=== PATIENT | male | born 1995 | race American Indian/Alaskan Native ===

== ENCOUNTER 2018-05-16 14:33 | Emergency (ER) | payer MEDICAID ==
--- NOTE | 2018-05-16 15:02 | C.PDOC ---
History Of Present Illness 22 y/o male presents to ED complaining of left leg pain x2 days. States he has not run in 8 months and wanted to test his endurance. Patient ran from court to court and did not feel any pain until the next morning. Patient reports that the pain became much worse and cannot walk well. Denies any right leg pain, fever, weakness, or numbness. <Amanda Vázquez - Last Filed: 05/16/18 21:22> <Courtney Crain - Last Filed: 05/16/18 17:55> History Per: Patient History/Exam Limitations: no limitations Onset/Duration Of Symptoms: Days, Persistent Current Symptoms Are (Timing): Still Present Pain Scale Rating Of: 9 <Amanda Vázquez - Last Filed: 05/16/18 21:22> Time Seen by Provider: 05/16/18 14:43 Chief Complaint (Nursing): Lower Extremity Problem/Injury Past Medical History Vital Signs: Last Vital Signs Temp 98.1 F 05/16/18 14:34 Pulse 110 H 05/16/18 14:34 Resp 20 05/16/18 14:34 BP 129/76 05/16/18 14:34 Pulse Ox 99 05/16/18 15:13 <Courtney Crain - Last Filed: 05/16/18 17:55> Reviewed: Historical Data, Nursing Documentation, Vital Signs Vital Signs: Last Vital Signs Temp 98.1 F 05/16/18 14:34 Pulse 110 H 05/16/18 14:34 Resp 20 05/16/18 14:34 BP 129/76 05/16/18 14:34 Pulse Ox 99 05/16/18 14:34 - Medical History PMH: No Chronic Diseases Surgical History: No Surg Hx Family History: States: No Known Family Hx - Social History Hx Alcohol Use: Yes Hx Substance Use: No - Immunization History Hx Tetanus Toxoid Vaccination: No Hx Influenza Vaccination: Yes Hx Pneumococcal Vaccination: No <Amanda Vázquez - Last Filed: 05/16/18 21:22> Review Of Systems Except As Marked, All Systems Reviewed And Found Negative. Constitutional: Negative for: Fever, Chills ENT: Negative for: Ear Pain, Ear Discharge Cardiovascular: Negative for: Chest Pain, Palpitations, Light Headedness Respiratory: Negative for: Cough, Shortness of Breath, Pleuritic Pain, Wheezing Gastrointestinal: Negative for: Nausea, Vomiting Genitourinary: Negative for: Dysuria Musculoskeletal: Positive for: Leg Pain (Left) Skin: Negative for: Rash, Bruising Neurological: Negative for: Weakness, Numbness <Amanda Vázquez - Last Filed: 05/16/18 21:22> Physical Exam - Physical Exam Appears: Non-toxic, No Acute Distress Skin: Warm, Dry, No Rash Head: Atraumatic, Normacephalic Eye(s): bilateral: Normal Inspection Oral Mucosa: Moist Neck: Normal ROM, Supple Chest: Symmetrical, No Tenderness Cardiovascular: Rhythm Regular, No Friction Rub, No Murmur Respiratory: Normal Breath Sounds, No Rales, No Rhonchi, No Wheezing Gastrointestinal/Abdominal: Normal Exam, Soft, No Tenderness Extremity: Tenderness (moderate tenderness to the left calf, firm to touch, no erythema, no fluctuance), No Pedal Edema, Capillary Refill (than 2 seconds), No Deformity, Swelling (moderate swelling of L calf ) Pulses: Left Femoral: Normal, Right Femoral: Normal, Left Dorsalis Pedis: Normal, Right Dorsalis Pedis: Normal Neurological/Psych: Oriented x3, Normal Speech, Normal Motor, Normal Sensation Gait: Steady <Amanda Vázquez - Last Filed: 05/16/18 21:22> ED Course And Treatment - Laboratory Results Result Diagrams: 05/16/18 15:21 05/16/18 15:21 <Courtney Crain - Last Filed: 05/16/18 17:55> - Laboratory Results Result Diagrams: 05/16/18 15:21 05/16/18 15:21 O2 Sat by Pulse Oximetry: 99 (RA) Pulse Ox Interpretation: Normal <Amanda Vázquez - Last Filed: 05/16/18 21:22> Supervising Attending Note - Supervising Attending Note The Documented history was done by the: Physician Household Appliance Installer The documented physical exam was done by the: Physician Household Appliance Installer The documented procedures were done by the: Physician Household Appliance Installer - Attestation: I have personally seen and examined this patient.: Yes I have fully participated in the care of the patient.: Yes I have reviewed all pertinent clinical information, including history, physical exam and plan: Yes - Notes: Notes:: NEW ONSET L LOWER CALF PAIN. ONSET AFTER RUNNING, PS HAS NOT RUN "IN 8 MONTHS". NO TRAUMA. +SWELLING. DENIES CP, SOB. NO IMPROVE W NSAIDS. EXAM ABOVE. +PALP DP, WARM NO PALLOR; +ROM L ACHILLES LIMITED FULL ROM DUE TO PAIN. +TENSE BUT SOFT L CALF NO PALP CORD. SKIN WNL. NO DEFORM <Courtney Crain - Last Filed: 05/16/18 17:55> Progress - Re-Evaluation Re-evaluation Note: 05/16/18 17:52 SP EVAL PODIATRY, COMPARTMENT PRESSURES WNL. DC FU OFFICE/CLINIC. 05/16/18 17:55 PT ADVISED TO RETURN TOMORROW FOR VENOUS DUPLEX. UNABLE TO DOSE ANTICOAG DUE TO S/P LARGE BORE MULTIPLE NEEDLE PROBE FROM Oligomerix. NO CP, SOB NSR. OUTPT RX MRI GIVEN BY PODIATRY <Courtney Crain - Last Filed: 05/16/18 17:55> Medical Decision Making Medical Decision Making: Plan: --Labs --Epinephrine --Morphine --Zofran Case was discussed with Dr. Crain who has examined the patient at bedside and states to consult podiatry on possible compartment syndrome. Case was discusesd with Dr. Medina podiatry at 1515 who states to order CK and D dimer (as venous doppler is not available at this time) and will come in to evaluated the patient. Podiatry contacted at 1615 pending evaluation. Another call placed at 1645 pending podiatry consult. Compartment pressures were checked by Podiatry resident with results of 15-18. Also CK is WNLs. On re-exam, the patient reports improvement of symptoms. Patient is ambulatory with steady gait. <Amanda Vázquez - Last Filed: 05/16/18 21:22> Disposition Counseled Patient/Family Regarding: Studies Performed, Diagnosis, Need For Followup, Rx Given - Disposition Disposition Time: 17:51 <Courtney Crain - Last Filed: 05/16/18 17:55> <Amanda Vázquez - Last Filed: 05/16/18 21:22> - Disposition Referrals: Mariaa Womack DPM [Staff Provider] - [facility] [Outside] [facility] [Outside] Disposition: HOME/ ROUTINE Condition: IMPROVED Additional Instructions: RETURN 05/17 FOR ULTRASOUND OF YOUR LEG. AVOID EXCESSIVE MOVEMENT FOLLOW UP PODIATRY CLINIC 05/24, LIMITED WEIGHT BEAR ON LEG, PAIN MEDICATIONS NEEDED. Prescriptions: Ibuprofen [Motrin] 600 mg PO Q6 #30 tab oxyCODONE/Acetaminophen [Percocet 5/325 mg Tab] 1 ea PO QID #6 tab Instructions: Muscle Strain (DC) Forms: [facility] (Cameroonian), Work Excuse - Clinical Impression Clinical Impression: Calf swelling, Exercise-induced leg cramps - PA / VOLUNTEER PATIENT REPRESENTATIVE / Resident Statement MD/DO has reviewed & agrees with the documentation as recorded. - Scribe Statement The provider has reviewed the documentation as recorded by the Scribe Mamta Christianson All medical record entries made by the Scribe were at my direction and pe rsonally dictated by me. I have reviewed the chart and agree that the record accurately reflects my personal performance of the history, physical exam, medical decision making, and the department course for this patient. I have also personally directed, reviewed, and agree with the discharge instructions and disposition. <Amanda Vázquez - Last Filed: 05/16/18 21:22>
[2018-05-16] MEDS ORDERED: Epinephrine /Lidocaine HCL 1:100,000/2% 30 ml INJ STA (15:10)
[2018-05-16] MEDS ORDERED: Lidocaine 2% w Epi 1:100,000 Inj IJ ONE (15:19)
[2018-05-16 15:29] LABS: BASO % 0.4 % (0.0-2.0); EOS % 0.1 % (0.0-4.0); HEMOGLOBIN 14.4 g/dL (12.0-18.0); LYMPH % 8.2 % (20.0-40.0); MEAN CELL VOLUME 85.1 fL (80.0-94.0); MEAN CORPUSCULAR HEMOGLOBIN 28.3 pg (27.0-31.0); MEAN CORPUSCULAR HGB CONC 33.2 g/dL (33.0-37.0); MEAN PLATELET VOLUME 7.7 fL (7.2-11.7); MONO # 1.3 K/uL (0.0-0.8); MONO % 9.9 % (0.0-10.0); NEUT # 10.3 K/uL (1.8-7.0); NEUT % 81.4 % (50.0-75.0); PLATELET COUNT 189 K/uL (130-400); RED CELL DISTRIBUTION WIDTH 13.2 % (11.5-14.5); WHITE BLOOD COUNT 12.6 K/uL (4.8-10.8)
[2018-05-16 15:50] LABS: ALB/GLOB RATIO 1.2 (1.0-2.1); ALBUMIN 4.1 g/dL (3.5-5.0); ALT/SGPT 23 U/L (21-72); AST/SGOT 21 U/L (17-59); BLOOD UREA NITROGEN 16 mg/dL (9-20); CALCIUM 9.2 mg/dl (8.6-10.4); GFR NON-AFRICAN AMERICAN > 60
[2018-05-16 15:57] LABS: BANDS 1 % (0-2); LARGE PLATELETS PRESENT; LYMPHOCYTE 10 % (20-40); METAMYELOCYTE 1 % (0-0); MONOCYTE 7 % (0-10); NEUTROPHIL 81 % (50-75); PLATELET ESTIMATE NORMAL (NORMAL); TOTAL CELLS COUNTED 100
[2018-05-16] MEDS ORDERED: Morphine 4 MG/ML VIAL ONE ×2 (16:14→16:43)
[2018-05-16 16:15] VITALS: RESP 18
[2018-05-16 17:26] VITALS: TEMP 100
[2018-05-16 18:13] VITALS: BP 137/66; PULSE 105
[2018-05-16 21:20] VITALS: O2SAT 99
--- NOTE | 2018-05-17 06:51 | CP.PCM.CON ---
History of Present Illness - History of Present Illness History of Present Illness: Podiatry consult note Dr. Womack 22 yo male with no pmhx presents to the ED with pain in left calf. States that 2-3 days ago he was running around and felt like he pulled his calf muscle. States that he has been walking on it regularly since the incident and he feels that it is getting increasingly swollen and tight. Describes pain as tightness and shooting pain and rates 10/10 on PAS. States he has not taken any pain medication or done anything to try and alleviate the pain. Denies any N/V/F/C/SOB/CP and has no other pedal complaints at this time. PMHx - denies PSHx - denies All - NKDA Past Patient History - Past Social History Smoking Status: Never Smoked - PSYCHIATRIC Hx Substance Use: No - SURGICAL HISTORY Hx Surgeries: No - ANESTHESIA Hx Anesthesia: No Hx Anesthesia Reactions: No Meds Home Medications: Home Medication List Medication Instructions Recorded Confirmed Type Ibuprofen [Motrin] 600 mg PO Q6 #30 tab 05/16/18 Rx oxyCODONE/Acetaminophen [Percocet 1 ea PO QID #6 tab 05/16/18 Rx 5/325 mg Tab] Allergies/Adverse Reactions: Allergies Allergy/AdvReac Type Severity Reaction Status Date / Time No Known Allergies Allergy Unverified 05/16/18 14:37 Physical Exam - Constitutional Appears: Well, Non-toxic - Head Exam Head Exam: ATRAUMATIC, NORMOCEPHALIC - Extremities Exam Additional comments: LLE focused Vasc: DP and PT pulses palpable 2/4; cap refill <3 seconds to all digits; temp gradient warm to cool from proximal to distal; mild edema as compared to contralateral limb present at the posterior compartment Derm: no open lesions present; mild erythema present at the posterior lower leg Neuro: no paresthesias present; gross and protective sensation are intact Ortho: able to plantar and dorsiflex at ankle; moderate-severe pain on muscle testing in plantarflexion at ankle, mckee test negative, maureen test positive, pain on squeeze of calf; no palpable deficits, no pain on achilles insertion or along tendon - Neurological Exam Neurological exam: Alert, Oriented x3 - Psychiatric Exam Psychiatric exam: Normal Affect, Normal Mood Results - Vital Signs Recent Vital Signs: Last Vital Signs Temp 100 F H 05/16/18 18:02 Pulse 105 H 10/28/18 18:12 Resp 18 05/16/18 18:12 BP 137/66 05/16/18 18:12 Pulse Ox 99 05/16/18 21:22 - Labs Result Diagrams: 05/16/18 15:21 05/16/18 15:21 Labs: Laboratory Results - last 24 hr 05/16/18 05/16/18 05/16/18 15:21 15:21 15:21 WBC 12.6 H RBC 5.10 Hgb 14.4 Hct 43.4 MCV 85.1 MCH 28.3 MCHC 33.2 RDW 13.2 Plt Count 189 MPV 7.7 Neut % (Auto) 81.4 H Lymph % (Auto) 8.2 L [place] % (Auto) 9.9 Eos % (Auto) 0.1 Baso % (Auto) 0.4 Neut # (Auto) 10.3 H Lymph # (Auto) 1.0 [place] # (Auto) 1.3 H Eos # (Auto) 0.0 Baso # (Auto) 0.0 Neutrophils % (Manual) 81 H Band Neutrophils % 1 Lymphocytes % (Manual) 10 L Monocytes % (Manual) 7 Metamyelocytes % 1 H Platelet Estimate Normal Large Platelets Present RBC Morphology Normal D-Dimer, Quantitative 685 H Sodium 136 Potassium 4.2 Chloride 98 Carbon Dioxide 26 Anion Gap 17 BUN 16 Creatinine 0.9 Est GFR ( Amer) > 60 Est GFR (Non-Af Amer) > 60 Random Glucose 103 Calcium 9.2 Total Bilirubin 1.3 AST 21 ALT 23 Alkaline Phosphatase 121 Total Creatine Kinase 179 H Total Protein 7.6 Albumin 4.1 Globulin 3.5 Albumin/Globulin Ratio 1.2 Assessment & Plan - Assessment and Plan (Free Text) Assessment: 22 yo male with no significant pmhx seen and evaluated in the ED for left posterior calf pain r/o compartment syndrome vs muscle strain Plan: Patient seen and evaluated Discussed in detail with Dr. Womack Charts and labs reviewed: afebrile, WBC 12.6 CPK - 179 D-Dimer - 685 Patient explained the etiology of compartment syndrome and possible complications if not properly diagnosed Patient and mother demonstrated understanding of compartment syndrome and compartment pressure testing Procedure was performed and all risks and complications explained to patient and mother at bedside - demonstrated understanding 3cc of 2% lidocaine with epi were injected proximally at the posterior compar tment of the left lower leg [email or web address] compartment pressure measuring device was used and pressures were attained: performed at 3 separate sites superficial and then deep - 15, 18; 18, 19; 18, 20 Patient tolerated procedure well Dressing applied to procedure site with betaine and DSD Instructed to keep clean and intact and can change and put more dressing supplies or band-aid over the sites D-dimer elevated - patient to return to [facility] tomorrow for LLE duplex ultrasound to r/o DVT Rx for MRI of left lower extremity dispensed to patient and instructed to call and make appointment to evaluate further soft tissue pathology Follow up with Dr. Womack in clinic a week from tomorrow and monitor pain progression If gets worse instructed to return to ED for further evaluation Dispensed crutches and instructed to weight bear as little as possible to help to decrease inflammation and aid in healing process of muscle RICE protocol instruction Take OTC pain medication as needed - Date & Time Date: 05/16/18 Time: 18:00
== END 2018-05-16 18:12 | disposition home or self-care (01) ==
LOC: C.ER 14:33
DX: M79.662 Pain in left lower leg (principal)
CPT/HCPCS: 80053; 82550; 85025; 85378; 96374; 96375; 96376; 99285; J2270; J2405

== ENCOUNTER 2018-05-17 10:32 | Emergency (ER) | payer MEDICAID ==
[2018-05-17 10:42] VITALS: BMI 35.9
[2018-05-17 10:46] VITALS: TEMP 98
--- NOTE | 2018-05-17 12:23 | C.PDOC ---
History Of Present Illness 22 y/o male returns to the ED for venous doppler of the left lower extremity. Patient was seen here yesterday for left leg pain and swelling. Labs were done, showing D-dimer elevation. Otherwise patient denies chest pain, sob, fever, or other complaints. He reports a total of 2-3 days of leg pain, which began after he ran. States prior to that he had not run in 8 months. Time Seen by Provider: 05/17/18 11:00 Chief Complaint (Nursing): Lower Extremity Problem/Injury History Per: Patient History/Exam Limitations: no limitations Onset/Duration Of Symptoms: Days (x3) Current Symptoms Are (Timing): Still Present Past Medical History Reviewed: Historical Data, Nursing Documentation, Vital Signs Vital Signs: Last Vital Signs Temp 98.0 F 05/17/18 10:45 Pulse 106 H 05/17/18 10:45 Resp 18 05/17/18 10:45 BP 134/80 05/17/18 10:45 Pulse Ox 97 05/17/18 10:45 - Medical History PMH: No Chronic Diseases Surgical History: No Surg Hx Family History: States: No Known Family Hx - Social History Hx Alcohol Use: No Hx Substance Use: No - Immunization History Hx Tetanus Toxoid Vaccination: No Hx Influenza Vaccination: Yes Hx Pneumococcal Vaccination: No Review Of Systems Constitutional: Negative for: Fever Cardiovascular: Negative for: Chest Pain Respiratory: Negative for: Shortness of Breath Musculoskeletal: Positive for: Leg Pain (and swelling) Skin: Negative for: Rash, Lesions Neurological: Negative for: Weakness, Numbness Physical Exam - Physical Exam Appears: Non-toxic, No Acute Distress Skin: Normal Color, Warm, No Rash Head: Atraumatic, Normacephalic Eye(s): bilateral: Normal Inspection Chest: Symmetrical Cardiovascular: Rhythm Regular, No Murmur Respiratory: Normal Breath Sounds, No Accessory Muscle Use, Other (Speaking in full sentences) Extremity: Normal ROM, Calf Tenderness (to left), Capillary Refill (less than 2 sec), Swelling (to the left calf) Pulses: Left Dorsalis Pedis: Normal, Right Dorsalis Pedis: Normal Neurological/Psych: Oriented x3, Normal Speech Gait: Steady ED Course And Treatment O2 Sat by Pulse Oximetry: 97 (RA) Pulse Ox Interpretation: Normal - CT Scan/US Doppler US - B/L LE Other Rad Studies (CT/US): Read By Radiologist, Radiology Report Reviewed CT/US Interpretation: +DVT, left popliteal and femoral Progress Note: Ordered venous doppler of the bilateral lower extremities. Administered Tramadol PO for pain. Doppler shows (+) DVT on the left, popliteal and femoral. Spoke to hospitalist, recommends starting patient on Eliquis, given initial dose in the ED. Advised patient of the importance of following up with the clinic Disposition Counseled Patient/Family Regarding: Studies Performed, Diagnosis, Need For Followup, Rx Given - Disposition Referrals: [facility] [Outside] Disposition: HOME/ ROUTINE Disposition Time: 12:25 Condition: STABLE Additional Instructions: GO DOWNSTAIRS TO CLINIC AFTER ER DISCHARGE AND MAKE FOLLOW UP APPOINTMENT FOR 3- 4 WEEKS TAKE ELIQUIS DAILY RETURN TO EMERGENCY ROOM IMMEDIATELY IF YOU KONSTANTIN ANY CHEST PAIN, SHORTNESS OF BREATH OR OTHER CONCERNING SYMPTOMS Prescriptions: Apixaban [Eliquis] 5 mg PO DAILY #30 tablet traMADol [Ultram] 50 mg PO BID PRN #15 tab PRN Reason: pain Instructions: Deep Vein Thrombosis (Blood Clots in the Legs) (DC) Forms: [employer] (Bahraini) Print Language: YI - Clinical Impression Clinical Impression: Left femoral vein DVT, Deep venous thrombosis of left popliteal vein - Scribe Statement The provider has reviewed the documentation as recorded by the Scribe ([place] Oliveira) Provider Attestation: All medical record entries made by the Scribe were at my direction and personally dictated by me. I have reviewed the chart and agree that the record accurately reflects my personal performance of the history, physical exam, medical decision making, and the department course for this patient. I have also personally directed, reviewed, and agree with the discharge instructions and disposition.
[2018-05-17 12:48] VITALS: BP 129/85; PULSE 79; RESP 16
[2018-05-17 13:19] VITALS: O2SAT 97
--- NOTE | 2018-05-17 14:10 | VASCLAB ---
Date of service: 05/17/2018 PROCEDURE: Lower Extremity Venous Duplex Exam. HISTORY: LEFT LEG PAIN SWELLING PRIORS: None. TECHNIQUE: Bilateral common femoral, femoral, popliteal and posterior tibial, peroneal and great saphenous veins were evaluated. Flow was assessed with color Doppler, compressibility, assessment of phasic flow and augmentation response. Report prepared by Ariel Howell, POONAM, RVT FINDINGS: RIGHT: 1. Common Femoral Vein: 1.1. Compressibility - Fully compressible: Thrombus - None : Flow - Phasic: Augmentation -Normal: Reflux - None. 2. Femoral Vein: 2.1. Compressibility - Fully compressible: Thrombus - None : Flow - Phasic: Augmentation -Normal: Reflux - None. 3. Popliteal Vein: 3.1. Compressibility - Fully compressible: Thrombus - None : Flow - Phasic: Augmentation -Normal: Reflux - None. 4. Posterior Tibial Vein: 4.1. Compressibility - Fully compressible: Thrombus - None: Flow - Phasic: Augmentation -Normal: Reflux - None. 5. Peroneal Vein: 5.1. Compressibility - Fully compressible: Thrombus - None: Flow - Phasic: Augmentation -Normal: Reflux - None. 6. Great Saphenous Vein: 6.1. Compressibility - Fully compressible: Thrombus - None: Flow - Phasic: Augmentation - Normal: Reflux - None. LEFT: 1. Common Femoral Vein: 1.1. Compressibility - Fully compressible: Thrombus - None: Flow - Phasic: Augmentation -Normal: Reflux - None. 2. Femoral Vein: 2.1. Compressibility - Partial: Thrombus - Acute: Flow - Absent : Augmentation - None: Reflux - None. 3. Popliteal Vein: 3.1. Compressibility - Partial: Thrombus - Acute : Flow - Absent : Augmentation - None: Reflux - None. 4. Posterior Tibial Vein: 4.1. Compressibility - : Thrombus - : Flow - : Augmentation -: Reflux - . 5. Peroneal Vein: 5.1. Compressibility - : Thrombus - : Flow - : Augmentation -: Reflux - . 6. Great Saphenous Vein: 6.1. Compressibility - Fully compressible: Thrombus - None: Flow - Phasic: Augmentation - Normal: Reflux - None. OTHER FINDINGS: MIKE Hankins notified about the Finding IMPRESSION: Right: No evidence of deep or superficial vein thrombosis of the right lower extremity. Normal valve function noted of the right side. Left: Acute thrombosis of the left femoral and popliteal veins with mild reduction of the venous return. Due to swelling in the calf, the left peroneal and posterior tibial veins were not visualized.
== END 2018-05-17 12:47 | disposition home or self-care (01) ==
LOC: C.ER 10:32
DX: I82.412 Acute embolism and thrombosis of left femoral vein (principal); I82.432 Acute embolism and thrombosis of left popliteal vein

== ENCOUNTER 2018-05-18 12:54 | Emergency (ER) | payer MEDICAID ==
[2018-05-18 12:54] VITALS: BMI 35.9
[2018-05-18 13:11] VITALS: BP 141/82; PULSE 98; RESP 20; TEMP 98.6; O2SAT 99
== END 2018-05-18 13:40 | disposition left against medical advice (07) ==
LOC: C.ER 12:54
DX: Z02.89 Encounter for other administrative examinations (principal); Z00.00 Encounter for general adult medical examination without abnormal findings